=== PATIENT | male | born 1965 | race Caucasian/White ===

== ENCOUNTER 2024-01-25 10:25 | Emergency (ER) | payer OTHER ==
[~2024-01-25] VITALS: Ht 167.6 cm; Wt 73.6 kg
[2024-01-25 18:28] VITALS: BP 150/92; TEMP 98; O2SAT 96
== END 2024-01-25 18:31 | disposition home or self-care (01) ==
LOC: M ED 10:25
DX: R93.89 Abnormal findings on diagnostic imaging of other specified body structures (principal); Z91.09 Other allergy status, other than to drugs and biological substances

== ENCOUNTER → 2024-01-26 | Outpatient (CLI) | payer OTHER ==
[~2024-01-26] MED LIST: ACET-683 PO; ALBU8.5H INH; AMOX875T2 PO; BICA50TA4 PO; BISA10SU PR; CYCL-707 PO; DEXA2TA PO; DOXY-440 PO; FURO40TA2 PO; MIRA33506 PO; OXYC-517 PO; PANT40TA29 PO; PROC5TAB57 PO; SENO8.6T5 PO
[2024-01-26 15:42] LABS: BASO % 0.4 % (0.0-1.0); EOS % 0.5 % (0.0-3.0); HEMATOCRIT 36.7 % (42.0-52.0); HEMOGLOBIN 11.6 g/dl (13.5-17.5); LYMPH # 1.8 10^3/uL (1.5-5.0); LYMPH % 21.3 % (24.0-44.0); MEAN CORPUSCULAR HGB CONC 31.6 g/dl (32.0-36.5); MEAN CORPUSCULAR VOLUME 88.4 fl (80.0-96.0); MONO # 0.6 10^3/uL (0.0-0.8); MONO % 7.3 % (2.0-8.0); NEUTROPHILS # 5.9 10^3/uL (1.5-8.5); PLATELET COUNT, AUTOMATED 497 10^3/uL (150-450); RED BLOOD COUNT 4.15 10^6/uL (4.30-6.10); WHITE BLOOD COUNT 8.4 10^3/uL (4.0-10.0)
[2024-01-26 16:13] LABS: LDH LACTATE DEHYDROGENASE 322 U/L (120-246)
[2024-01-26 16:14] LABS: ALKALINE PHOSPHATASE 315 U/L (40-129); ALT/SGPT 32 U/L (7.0-40); AST/SGOT 45 U/L (<34); BILIRUBIN,TOTAL 0.2 MG/DL (0.3-1.2); BLOOD UREA NITROGEN 24 MG/DL (9-23); C REACTIVE PROTEIN QUANTITATIV 9.83 MG/DL (<1.0); CALCIUM LEVEL 8.3 MG/DL (8.5-10.1); CARBON DIOXIDE LEVEL 31 MMOL/L (20-31); CHLORIDE LEVEL 101 MMOL/L (98-107); CREATININE FOR GFR 0.67 MG/DL (0.70-1.30); GLOMERULAR FILTRATION RATE > 60.0 (>56); GLUCOSE, FASTING 100 MG/DL (60-100); PROSTATIC SPECIFIC AG MONITOR 35.71 NG/ML (< 4.00); SODIUM LEVEL 138 MMOL/L (136-145); TOTAL PROTEIN 6.7 G/DL (5.7-8.2)
[2024-01-26 16:15] LABS: CARCINOEMBRYONIC ANTIGEN < 2.0 NG/ML (<2.5); THYROID STIMULATING HORMONE 1.613 uIU/ML (0.55-4.78)
[2024-01-26 16:26] LABS: HEMOGLOBIN A1c 5.5 % (4.0-6.0)
[2024-01-26 16:31] LABS: CA19-9 TUMOR MARKER,CARBOHYDRA 7.1 U/ML (<35.0)
== END ==
LOC: M ONCR 13:38
PROVIDERS: ATTEND General Practice
DX: C78.1 Secondary malignant neoplasm of mediastinum (principal); C79.51 Secondary malignant neoplasm of bone; K68.9 Other disorders of retroperitoneum; C80.1 Malignant (primary) neoplasm, unspecified; Z91.09 Other allergy status, other than to drugs and biological substances; Z83.3 Family history of diabetes mellitus
CPT/HCPCS: 36415; 80053; 82378; 83036; 83615; 84153; 84439; 84443; 85025; 86140; 86301; 86304; G0463

== ENCOUNTER → 2024-01-26 | Outpatient (CLI) | payer OTHER ==
[~2024-01-26] MED LIST changes: +DEXA4TA PO; +PRED5PAK PO; +PRED5TA PO; +ZYTI250T PO
== END ==
LOC: M IRPOV 15:00
PROVIDERS: ATTEND Radiology Diagnostic Radiology
DX: C78.7 Secondary malignant neoplasm of liver and intrahepatic bile duct (principal); C61 Malignant neoplasm of prostate

== ENCOUNTER 2024-01-30 10:57 | Inpatient (IN) | payer OTHER ==
[~2024-01-30] VITALS: Ht 167.6 cm; Wt 76.5 kg
[2024-01-30 11:31] LABS: VENOUS BASE EXCESS 5.3 (-2.0-2.0); VENOUS HCO3 31.7 MMOL/L (23.0-27.0); VENOUS O2 SATURATION 36.3 % (60.0-80.0); VENOUS PARTIAL PRESSURE CO2 52.4 mmHg (38.0-50.0); VENOUS PARTIAL PRESSURE O2 22.3 mmHg (30.0-50.0); VENOUS PH 7.399 UNITS (7.330-7.430); VENOUS STANDARD HCO3 27.5 MMOL/L; VENOUS TOTAL CO2 33.3 MMOL/L (24.0-28.0)
[2024-01-30 11:37] LABS: BASO % 0.3 % (0.0-1.0); EOS % 0.1 % (0.0-3.0); HEMATOCRIT 46.8 % (42.0-52.0); HEMOGLOBIN 14.8 g/dl (13.5-17.5); LYMPH # 1.5 10^3/uL (1.5-5.0); LYMPH % 13.1 % (24.0-44.0); MEAN CORPUSCULAR HEMOGLOBIN 27.8 pg (27.0-33.0); MEAN CORPUSCULAR HGB CONC 31.6 g/dl (32.0-36.5); MONO # 0.7 10^3/uL (0.0-0.8); MONO % 6.1 % (2.0-8.0); NEUTROPHILS # 9.3 10^3/uL (1.5-8.5); NEUTROPHILS % 79.9 % (36.0-66.0); PLATELET COUNT, AUTOMATED 623 10^3/uL (150-450); RED BLOOD COUNT 5.32 10^6/uL (4.30-6.10); WHITE BLOOD COUNT 11.6 10^3/uL (4.0-10.0)
[2024-01-30 11:50] LABS: INR 1.12; PROTHROMBIN TIME 14.8 SECONDS (12.5-14.5)
[2024-01-30 12:07] LABS: CK-MB VALUE MASS 1.5 NG/ML (<3.6)
[2024-01-30 12:09] LABS: ALBUMIN 2.7 G/DL (3.2-5.2); ALKALINE PHOSPHATASE 479 U/L (40-129); ALT/SGPT 18 U/L (7.0-40); AST/SGOT 83 U/L (<34); BILIRUBIN,DIRECT 0.1 MG/DL (<0.4); BILIRUBIN,TOTAL 0.5 MG/DL (0.3-1.2); BLOOD UREA NITROGEN 19 MG/DL (9-23); CALCIUM LEVEL 9.3 MG/DL (8.5-10.1); CARBON DIOXIDE LEVEL 30 MMOL/L (20-31); CHLORIDE LEVEL 99 MMOL/L (98-107); CPK CREATINE PHOSPHOKINASE 511 U/L (46-171); CREATININE FOR GFR 0.75 MG/DL (0.70-1.30); GLOMERULAR FILTRATION RATE > 60.0 (>56); GLUCOSE, FASTING 99 MG/DL (60-100); MB/CK RELATIVE INDEX 0.29 (< OR =4); SODIUM LEVEL 139 MMOL/L (136-145)
[2024-01-30 12:18] LABS: ABG BASE EXCESS 3.7 (-2.0-2.0); ABG O2 SATURATION 97.9 % (95.0-99.0); ABG PARTIAL PRESSURE CO2 36.6 mmHg (35.0-45.0); ABG PARTIAL PRESSURE O2 101.9 mmHg (75.0-100.0); ABG STANDARD HCO3 27.8 MMOL/L. (22.0-26.0); ABG TOTAL CO2 28.1 MMOL/L (22.0-29.0); ABG pH (ARTERIAL) 7.486 UNITS (7.350-7.450)
[2024-01-30] MEDS ORDERED: ISOVUE-370 76% 100ML VIAL As Ordered ONE (12:22)
[2024-01-30] MEDS: IPRATROPIUM 0.5MG/ALBUTEROL 2.5MG INH SOL UD 3ML (DUONEB) NEB ONE (12:22)
[2024-01-30] MEDS: ALBUTEROL SULFATE 2.5MG/0.5ML INH NEB SOLN INH ONE (12:23)
[2024-01-30 13:12] LABS: CK-MB VALUE MASS < 1.0 NG/ML (<3.6); CPK CREATINE PHOSPHOKINASE 433 U/L (46-171); MB/CK RELATIVE INDEX 0.23 (< OR =4)
[2024-01-30] MEDS ORDERED: PERCOCET 5MG/325MG TAB PO PRN ×2 (13:50)
[2024-01-30] MEDS ORDERED: BISACODYL 10MG SUPP PR PRN (13:50)
[2024-01-30] MEDS ORDERED: ACETAMINOPHEN 325 MG TAB PO PRN (13:50)
[2024-01-30] MEDS: LEVALBUTEROL 1.25MG 0.5ML CONCENTRATE NEB NEB SCH (14:00)
[2024-01-30] MEDS: D5W/0.9% SODIUM CHLORIDE 1,000 ML IV SCH (14:12)
[2024-01-30 14:43] VITALS: BP 163/100; TEMP 98.5; O2SAT 96
[2024-01-30] MEDS ORDERED: LIDOCAINE 1% MDV 20ML VIAL As Ordered ONE (14:51)
[2024-01-30 14:56] LABS: LDH LACTATE DEHYDROGENASE 603 U/L (120-246)
[2024-01-30] MEDS: KETOROLAC 30 MG/ML 1ML VIAL IV SCH (15:56)
[2024-01-30] MEDS: PANTOPRAZOLE 40MG TAB (PROTONIX) PO SCH (16:07)
[2024-01-30] MEDS: MOM 30ML SUSPENSION UDC PO SCH (16:07)
[2024-01-30] MEDS ORDERED: HOME MED LIST COMPLETE! XX SCH (16:40)
[2024-01-30] MEDS ORDERED: CYCL-707 PO (16:40)
[2024-01-30 16:49] LABS: SOURCE, BODY FLUID ALBUMIN PLEURAL
[2024-01-30 16:54] LABS: SOURCE, BODY FLUID GLUCOSE PLEURAL; SOURCE, BODY FLUID TOT PROTEIN PLEURAL; SOURCE, BODY FLUID TRIG PLEURAL; TOTAL PROTEIN, BODY FLUID 2.2 G/DL (NOT ESTABLISHED); TRIGLYCERIDE, BODY FLUID 24 MG/DL (NOT ESTABLISHED)
[2024-01-30 16:55] LABS: LDH, BODY FLUID 145 U/L (NOT ESTABLISHED); SOURCE, BODY FLUID LDH PLEURAL
[2024-01-30 16:56] LABS: AMYLASE, BODY FLUID < 20 U/L (NOT ESTABLISHED); CHOLESTEROL, BODY FLUID 37 MG/DL (NOT ESTABLISHED); SOURCE, BODY FLUID AMYLASE PLEURAL; SOURCE, BODY FLUID CHOL PLEURAL
[2024-01-30 17:02] LABS: PH BODY FLUID 7.715 UNITS (NOT ESTABLISHED); SOURCE, BODY FLUID pH PLEURAL
[2024-01-30 17:18] LABS: APPEARANCE, BODY FLUID CLEAR (CLEAR); PLEURAL FL COLOR PALE YELLOW (COLORLESS); SOURCE, BODY FLUID PLEURAL
[2024-01-30] MEDS ORDERED: LR 1,000 ML IV SCH (17:35)
[2024-01-30] MEDS ORDERED: oxyCODONE 5MG TAB PO PRN (18:25)
[2024-01-30 20:48] VITALS: BP 131/86; TEMP 97.4; O2SAT 94
[2024-01-30] MEDS: HEPARIN SOD (PORCINE) 5000UNITS/ML 1ML VIAL/SYRINGE SC SCH (20:51)
[2024-01-30] MEDS: DOCUSATE SODIUM 100MG CAPSULE PO SCH (20:52)
[2024-01-30] MEDS: ACETAMINOPHEN 325 MG TAB PO SCH (20:52)
[2024-01-30 23:30] VITALS: BP 129/88; TEMP 98.1; O2SAT 95
[2024-01-31 04:00] VITALS: BP 138/90; TEMP 97.9; O2SAT 96
[2024-01-31 05:33] LABS: ABG BASE EXCESS 4.5 (-2.0-2.0); ABG HCO3 28.8 MMOL/L (22.0-26.0); ABG O2 SATURATION 98.9 % (95.0-99.0); ABG PARTIAL PRESSURE CO2 41.8 mmHg (35.0-45.0); ABG PARTIAL PRESSURE O2 133.8 mmHg (75.0-100.0); ABG STANDARD HCO3 28.5 MMOL/L. (22.0-26.0); ABG TOTAL CO2 30.1 MMOL/L (22.0-29.0); ABG pH (ARTERIAL) 7.456 UNITS (7.350-7.450)
[2024-01-31 06:52] LABS: BASO % 0.2 % (0.0-1.0); EOS % 0.1 % (0.0-3.0); HEMATOCRIT 36.8 % (42.0-52.0); LYMPH # 1.3 10^3/uL (1.5-5.0); LYMPH % 11.2 % (24.0-44.0); MEAN CORPUSCULAR HEMOGLOBIN 27.5 pg (27.0-33.0); MEAN CORPUSCULAR VOLUME 88.9 fl (80.0-96.0); MONO # 0.8 10^3/uL (0.0-0.8); MONO % 6.7 % (2.0-8.0); NEUTROPHILS # 9.7 10^3/uL (1.5-8.5); NEUTROPHILS % 81.2 % (36.0-66.0); RED BLOOD COUNT 4.14 10^6/uL (4.30-6.10); WHITE BLOOD COUNT 11.9 10^3/uL (4.0-10.0)
[2024-01-31 06:59] LABS: HEMOGLOBIN 11.4 g/dl (13.5-17.5); PLATELET COUNT, AUTOMATED 447 10^3/uL (150-450)
[2024-01-31] MEDS ORDERED: MOM 30ML SUSPENSION UDC PO PRN (07:25)
[2024-01-31 07:30] VITALS: BP 149/96; TEMP 98; O2SAT 96
[2024-01-31 07:31] LABS: BLOOD UREA NITROGEN 24 MG/DL (9-23); CALCIUM LEVEL 8.2 MG/DL (8.5-10.1); CARBON DIOXIDE LEVEL 30 MMOL/L (20-31); CHLORIDE LEVEL 101 MMOL/L (98-107); CREATININE FOR GFR 0.79 MG/DL (0.70-1.30); GLOMERULAR FILTRATION RATE > 60.0 (>56); GLUCOSE, FASTING 103 MG/DL (60-100); POTASSIUM SERUM 4.4 MMOL/L (3.5-5.1); SODIUM LEVEL 139 MMOL/L (136-145)
[2024-01-31] MEDS: KETOROLAC 30 MG/ML 1ML VIAL IV PRN (08:43)
[2024-01-31] MEDS: oxyCODONE 5MG TAB PO PRN ×2 (10:10→17:27)
[2024-01-31 12:00] VITALS: BP 140/87; TEMP 96.9; O2SAT 95
[2024-01-31] MEDS: FUROSEMIDE 20 MG TAB PO SCH (13:40)
[2024-01-31 16:00] VITALS: BP 159/97; TEMP 98; O2SAT 95
[2024-01-31] MEDS: LEVALBUTEROL 1.25MG 0.5ML CONCENTRATE NEB NEB PRN (17:37)
[2024-01-31 20:27] VITALS: BP 129/86; TEMP 97.9; O2SAT 94
[2024-02-01] VITALS (25 sets, daily range): BP systolic 139–174; BP diastolic 80–100; TEMP 97.4–102.7; O2SAT 88–97
[2024-02-01] MEDS ORDERED: PILL CUTTER 1 EACH XX ONE (00:01)
[2024-02-01] MEDS: LEVALBUTEROL 1.25MG 0.5ML CONCENTRATE NEB NEB ONE (03:49)
[2024-02-01 05:52] LABS: BASO % 0.2 % (0.0-1.0); EOS # 0.1 10^3/uL (0.0-0.5); EOS % 0.5 % (0.0-3.0); HEMATOCRIT 36.1 % (42.0-52.0); HEMOGLOBIN 11.1 g/dl (13.5-17.5); LYMPH # 1.3 10^3/uL (1.5-5.0); LYMPH % 9.8 % (24.0-44.0); MEAN CORPUSCULAR HEMOGLOBIN 27.8 pg (27.0-33.0); MEAN CORPUSCULAR HGB CONC 30.7 g/dl (32.0-36.5); MEAN CORPUSCULAR VOLUME 90.3 fl (80.0-96.0); MONO # 0.8 10^3/uL (0.0-0.8); MONO % 6.4 % (2.0-8.0); NEUTROPHILS # 10.8 10^3/uL (1.5-8.5); NEUTROPHILS % 82.6 % (36.0-66.0); PLATELET COUNT, AUTOMATED 414 10^3/uL (150-450); WHITE BLOOD COUNT 13.1 10^3/uL (4.0-10.0)
[2024-02-01 06:10] LABS: BLOOD UREA NITROGEN 28 MG/DL (9-23); CARBON DIOXIDE LEVEL 28 MMOL/L (20-31); CHLORIDE LEVEL 102 MMOL/L (98-107); CREATININE FOR GFR 0.77 MG/DL (0.70-1.30); GLOMERULAR FILTRATION RATE > 60.0 (>56); GLUCOSE, FASTING 145 MG/DL (60-100); POTASSIUM SERUM 4.1 MMOL/L (3.5-5.1); SODIUM LEVEL 139 MMOL/L (136-145)
[2024-02-01] MEDS: ONDANSETRON 4MG 2ML VIAL IV PRN (06:20)
[2024-02-01] MEDS: oxyCODONE 5MG TAB PO PRN (15:40)
[2024-02-01] MEDS: CYCLOBENZAPRINE 10MG TABLET PO PRN (17:59)
[2024-02-01] MEDS: oxyCODONE 5MG TAB PO ONE (19:38)
[2024-02-01] MEDS ORDERED: VANCOMYCIN/WATER FOR INJ 1,000 MG in IV 1 EA IV SCH (20:00)
[2024-02-01] MEDS ORDERED: PIPERACILLIN/TAZOBACTAM SOD 3.375 GM in DEXTROSE 5% (D5W) ADV/MINI-BAG 50 ML IV SCH (20:00)
[2024-02-01] MEDS: LR 1,000 ML IV SCH (20:15)
[2024-02-01] MEDS: VANCOMYCIN HCL 1,500 MG, VIAL MATE ADAPTER 1 EACH in NS 500 ML IV ONE (20:37)
[2024-02-01] MEDS: DICLOFENAC EPOLAMINE 1.3% PATCH TOP SCH (20:37)
[2024-02-01 22:54] LABS: HEMATOCRIT 31.5 % (42.0-52.0); HEMOGLOBIN 9.6 g/dl (13.5-17.5); MEAN CORPUSCULAR HEMOGLOBIN 27.7 pg (27.0-33.0); MEAN CORPUSCULAR HGB CONC 30.5 g/dl (32.0-36.5); PLATELET COUNT, AUTOMATED 370 10^3/uL (150-450); RED BLOOD COUNT 3.46 10^6/uL (4.30-6.10); WHITE BLOOD COUNT 13.6 10^3/uL (4.0-10.0)
[2024-02-01] MEDS: PIPERACILLIN/TAZOBACTAM SOD 4.5 GM in DEXTROSE 5% (D5W) ADV/MINI-BAG 50 ML IV SCH (23:05)
[2024-02-01 23:17] LABS: BLOOD UREA NITROGEN 24 MG/DL (9-23); CALCIUM LEVEL 7.1 MG/DL (8.5-10.1); CARBON DIOXIDE LEVEL 27 MMOL/L (20-31); CHLORIDE LEVEL 103 MMOL/L (98-107); CREATININE FOR GFR 0.76 MG/DL (0.70-1.30); GLOMERULAR FILTRATION RATE > 60.0 (>56); GLUCOSE, FASTING 98 MG/DL (60-100); POTASSIUM SERUM 4.6 MMOL/L (3.5-5.1); SODIUM LEVEL 137 MMOL/L (136-145)
[2024-02-02] VITALS (24 sets, daily range): BP systolic 131–139; BP diastolic 78–95; TEMP 95.7–101.9; O2SAT 88–97
[2024-02-02] MEDS: VANCOMYCIN 1,250 MG/250 ML IV BAG IV SCH (03:21)
[2024-02-02 03:30] LABS: BASO % 0.2 % (0.0-1.0); EOS % 0.3 % (0.0-3.0); HEMATOCRIT 34.5 % (42.0-52.0); HEMOGLOBIN 10.8 g/dl (13.5-17.5); LYMPH # 1.5 10^3/uL (1.5-5.0); LYMPH % 9.1 % (24.0-44.0); MEAN CORPUSCULAR HGB CONC 31.3 g/dl (32.0-36.5); MEAN CORPUSCULAR VOLUME 89.4 fl (80.0-96.0); MONO % 6.5 % (2.0-8.0); NEUTROPHILS # 13.3 10^3/uL (1.5-8.5); NEUTROPHILS % 83.5 % (36.0-66.0); PLATELET COUNT, AUTOMATED 403 10^3/uL (150-450); RED BLOOD COUNT 3.86 10^6/uL (4.30-6.10); WHITE BLOOD COUNT 15.9 10^3/uL (4.0-10.0)
[2024-02-02 03:44] LABS: BLOOD UREA NITROGEN 26 MG/DL (9-23); CALCIUM LEVEL 7.9 MG/DL (8.5-10.1); CARBON DIOXIDE LEVEL 27 MMOL/L (20-31); CHLORIDE LEVEL 102 MMOL/L (98-107); CREATININE FOR GFR 0.83 MG/DL (0.70-1.30); GLOMERULAR FILTRATION RATE > 60.0 (>56); GLUCOSE, FASTING 103 MG/DL (60-100); POTASSIUM SERUM 4.4 MMOL/L (3.5-5.1); SODIUM LEVEL 136 MMOL/L (136-145)
[2024-02-02 08:11] LABS: PROCALCITONIN 0.71 ng/ml
[2024-02-02] MEDS: SENNA 8.6 MG TAB (SENOKOT) PO PRN (08:37)
[2024-02-02] MEDS: MIRALAX *UNIT DOSE* 17GM PACKET PO PRN (08:37)
[2024-02-02] MEDS: FUROSEMIDE 40MG/4ML VIAL IV ONE (10:04)
[2024-02-02] MEDS: VANCOMYCIN 1,000MG/200 ML IV BAG IV SCH (16:15)
[2024-02-02] MEDS ORDERED: BICA50TA4 PO (17:00)
[2024-02-02] MEDS ORDERED: PROHANCE 279.3MG/ML 15ML VIAL As Ordered ONE (18:22)
[2024-02-02] MEDS: HYDROMORPHONE HCL 0.5 MG/ 0.5 ML SYRINGE IV ONE (19:43)
[2024-02-03] VITALS (23 sets, daily range): BP systolic 125–139; BP diastolic 79–88; TEMP 98.4–98.5; O2SAT 86–100
[2024-02-03] MEDS: ACETAMINOPHEN 325 MG TAB PO PRN (03:12)
[2024-02-03 05:26] LABS: BASO # 0.1 10^3/uL (0.0-0.2); BASO % 0.3 % (0.0-1.0); EOS # 0.1 10^3/uL (0.0-0.5); EOS % 0.5 % (0.0-3.0); HEMATOCRIT 32.3 % (42.0-52.0); LYMPH # 1.8 10^3/uL (1.5-5.0); LYMPH % 12.5 % (24.0-44.0); MEAN CORPUSCULAR HEMOGLOBIN 27.2 pg (27.0-33.0); MEAN CORPUSCULAR VOLUME 87.8 fl (80.0-96.0); MONO # 1.1 10^3/uL (0.0-0.8); MONO % 7.8 % (2.0-8.0); NEUTROPHILS # 11.4 10^3/uL (1.5-8.5); NEUTROPHILS % 78.5 % (36.0-66.0); PLATELET COUNT, AUTOMATED 374 10^3/uL (150-450); RED BLOOD COUNT 3.68 10^6/uL (4.30-6.10); WHITE BLOOD COUNT 14.5 10^3/uL (4.0-10.0)
[2024-02-03 06:04] LABS: BLOOD UREA NITROGEN 27 MG/DL (9-23); CALCIUM LEVEL 7.6 MG/DL (8.5-10.1); CARBON DIOXIDE LEVEL 27 MMOL/L (20-31); CHLORIDE LEVEL 103 MMOL/L (98-107); GLOMERULAR FILTRATION RATE > 60.0 (>56); GLUCOSE, FASTING 101 MG/DL (60-100); POTASSIUM SERUM 3.5 MMOL/L (3.5-5.1); SODIUM LEVEL 141 MMOL/L (136-145)
[2024-02-03] MEDS ORDERED: oxyCODONE 5MG TAB PO PRN (09:45)
[2024-02-03] MEDS: dexAMETHasone 2 MG TAB PO SCH (12:00)
[2024-02-03] MEDS ORDERED: OXYC-517 PO (16:27)
[2024-02-03] MEDS ORDERED: DEXA2TA PO (16:27)
[2024-02-03] MEDS ORDERED: MIRA33506 PO (16:27)
[2024-02-03] MEDS ORDERED: ACET-683 PO (16:27)
[2024-02-03] MEDS ORDERED: PANT40TA29 PO (16:27)
[2024-02-03] MEDS ORDERED: AMOX875T2 PO (16:27)
[2024-02-03] MEDS ORDERED: ALBU8.5H INH (16:27)
[2024-02-03] MEDS ORDERED: BISA10SU PR (16:27)
[2024-02-03] MEDS ORDERED: DOXY-440 PO (16:27)
[2024-02-03] MEDS ORDERED: SENO8.6T5 PO (16:27)
[2024-02-05] MEDS ORDERED: PROC5TAB57 PO (14:19)
== END 2024-02-03 17:42 | disposition home health service (06) | DRG 500 ==
LOC: M ED 10:57 → M ED INP 13:47 → EEVIPCON 13:47 → M PCU 14:34
PROVIDERS: ADMIT Student in an Organized Health Care Education/Training Program; ATTEND Student in an Organized Health Care Education/Training Program
PROC: 0W9B30Z Drainage of Left Pleural Cavity with Drainage Device, Percutaneous Approach (ICD-10-PCS; principal; 2024-01-30)
PROC: B246ZZZ Ultrasonography of Right and Left Heart (ICD-10-PCS; 2024-02-01)
DX: C61 Malignant neoplasm of prostate (principal); A41.9 Sepsis, unspecified organism; J91.0 Malignant pleural effusion; C78.01 Secondary malignant neoplasm of right lung; C78.7 Secondary malignant neoplasm of liver and intrahepatic bile duct; C78.02 Secondary malignant neoplasm of left lung; E83.52 Hypercalcemia; C79.51 Secondary malignant neoplasm of bone; E87.20 Acidosis, unspecified; R06.02 Shortness of breath; I10 Essential (primary) hypertension; J98.11 Atelectasis; M25.552 Pain in left hip; M54.50 Low back pain, unspecified; R63.4 Abnormal weight loss; R09.02 Hypoxemia

== ENCOUNTER → 2024-01-30 | Outpatient (CLI) | payer OTHER ==
[~2024-01-30] MED LIST changes: -DEXA4TA PO; -FURO40TA2 PO; -PRED5PAK PO; -PRED5TA PO; -PROC5TAB57 PO; -ZYTI250T PO
== END ==
LOC: M RAD 10:15
PROVIDERS: ATTEND General Practice
DX: C79.51 Secondary malignant neoplasm of bone (principal); C78.7 Secondary malignant neoplasm of liver and intrahepatic bile duct

== ENCOUNTER → 2024-02-06 | Outpatient (RCR) | payer OTHER ==
[~2024-02-06] MED LIST changes: +FURO40TA2 PO; +PROC5TAB57 PO
== END ==
LOC: M ONCR 02-02 15:13
PROVIDERS: ATTEND General Practice
DX: Z51.0 Encounter for antineoplastic radiation therapy (principal); C61 Malignant neoplasm of prostate

== ENCOUNTER → 2024-02-08 | Outpatient (REF) | payer OTHER ==
[2024-02-08 11:43] LABS: HEMATOCRIT 38.4 % (42.0-52.0); MEAN CORPUSCULAR HEMOGLOBIN 27.5 pg (27.0-33.0); MEAN CORPUSCULAR HGB CONC 31.3 g/dl (32.0-36.5); MEAN CORPUSCULAR VOLUME 88.1 fl (80.0-96.0); PLATELET COUNT, AUTOMATED 566 10^3/uL (150-450); RED BLOOD COUNT 4.36 10^6/uL (4.30-6.10)
[2024-02-08 12:13] LABS: BLOOD UREA NITROGEN 18 MG/DL (9-23); CARBON DIOXIDE LEVEL 36 MMOL/L (20-31); CHLORIDE LEVEL 99 MMOL/L (98-107); CREATININE FOR GFR 0.73 MG/DL (0.70-1.30); GLOMERULAR FILTRATION RATE > 60.0 (>56); GLUCOSE, FASTING 106 MG/DL (60-100); POTASSIUM SERUM 4.5 MMOL/L (3.5-5.1); SODIUM LEVEL 142 MMOL/L (136-145)
== END ==
LOC: M LAB REF 11:20
PROVIDERS: ATTEND Student in an Organized Health Care Education/Training Program
DX: Z00.00 Encounter for general adult medical examination without abnormal findings (principal)

== ENCOUNTER → 2024-02-08 | Outpatient (CLI) | payer OTHER ==
[~2024-02-08] MED LIST changes: -FURO40TA2 PO
== END ==
LOC: M LAB 11:40
PROVIDERS: ATTEND General Practice
DX: C79.51 Secondary malignant neoplasm of bone (principal); C78.7 Secondary malignant neoplasm of liver and intrahepatic bile duct

== ENCOUNTER 2024-02-12 10:12 | Outpatient (RCR) | payer BC, OTHER ==
[~2024-02-12 10:12] MED LIST changes: -FURO40TA2 PO
[2024-02-12] MEDS ORDERED: FURO40TA2 PO (11:10)
[2024-03-05] MEDS ORDERED: PRED5TA PO (12:23)
[2024-03-05] MEDS ORDERED: DEXA4TA PO (12:23)
[2024-03-05] MEDS ORDERED: ZYTI250T PO (12:24)
[2024-03-05] MEDS ORDERED: PRED5PAK PO (13:15)
== END 2024-03-08 ==
LOC: M ONCR 10:12
PROVIDERS: ATTEND General Practice
DX: Z51.0 Encounter for antineoplastic radiation therapy (principal); C61 Malignant neoplasm of prostate

== ENCOUNTER → 2024-02-12 | Outpatient (CLI) | payer OTHER ==
[~2024-02-12] MED LIST changes: +FURO40TA2 PO
[2024-02-12] MEDS: LEUPROLIDE 30 MG IM ONE (10:40)
== END ==
LOC: M ONCR 11:08
PROVIDERS: ATTEND General Practice
DX: C61 Malignant neoplasm of prostate (principal)
CPT/HCPCS: 96402; J9217

== ENCOUNTER → 2024-02-29 | Outpatient (CLI) | payer OTHER ==
[~2024-02-29] MED LIST changes: +FURO40TA2 PO
[2024-02-29 12:32] VITALS: TEMP 98.4
[2024-02-29 15:12] VITALS: BP 135/78; O2SAT 91
== END ==
LOC: M IRPRO 11:29
PROVIDERS: ATTEND General Practice
DX: J90 Pleural effusion, not elsewhere classified (principal); C61 Malignant neoplasm of prostate

== ENCOUNTER → 2024-02-29 | Outpatient (CLI) | payer BC, OTHER ==
[~2024-02-29] MED LIST changes: +DEXA4TA PO; +LISI10TA22; +ONDA-284 PO; +PRED5PAK PO; +PRED5TA PO; +ZYTI250T PO
[2024-02-29 09:15] LABS: BASO # 0.1 10^3/uL (0.0-0.2); EOS # 0.1 10^3/uL (0.0-0.5); HEMATOCRIT 41.9 % (42.0-52.0); LYMPH # 0.5 10^3/uL (1.5-5.0); LYMPH % 10.7 % (24.0-44.0); MEAN CORPUSCULAR HEMOGLOBIN 28.4 pg (27.0-33.0); MEAN CORPUSCULAR VOLUME 91.5 fl (80.0-96.0); MONO # 0.4 10^3/uL (0.0-0.8); MONO % 8.6 % (2.0-8.0); NEUTROPHILS # 3.8 10^3/uL (1.5-8.5); NEUTROPHILS % 78.5 % (36.0-66.0); PLATELET COUNT, AUTOMATED 294 10^3/uL (150-450); RED BLOOD COUNT 4.58 10^6/uL (4.30-6.10); WHITE BLOOD COUNT 4.9 10^3/uL (4.0-10.0)
[2024-02-29 09:34] LABS: ALBUMIN 2.6 G/DL (3.2-5.2); ALKALINE PHOSPHATASE 309 U/L (40-129); ALT/SGPT 15 U/L (7.0-40); AST/SGOT 25 U/L (<34); BILIRUBIN,TOTAL 0.3 MG/DL (0.3-1.2); BLOOD UREA NITROGEN 21 MG/DL (9-23); CALCIUM LEVEL 8.5 MG/DL (8.5-10.1); CARBON DIOXIDE LEVEL 33 MMOL/L (20-31); CHLORIDE LEVEL 107 MMOL/L (98-107); CREATININE FOR GFR 0.74 MG/DL (0.70-1.30); GLOMERULAR FILTRATION RATE > 60.0 (>56); GLUCOSE, FASTING 90 MG/DL (60-100); POTASSIUM SERUM 4.6 MMOL/L (3.5-5.1); PROSTATIC SPECIFIC AG MONITOR 32.57 NG/ML (< 4.00); SODIUM LEVEL 144 MMOL/L (136-145); TOTAL PROTEIN 6.4 G/DL (5.7-8.2)
[2024-02-29 09:38] LABS: TESTOSTERONE 47 NG/DL (241-827)
[2024-02-29] MEDS: FUROSEMIDE 40MG/4ML VIAL IV ONE (10:02)
== END ==
LOC: M ONCR 08:12
PROVIDERS: ATTEND General Practice
DX: C61 Malignant neoplasm of prostate (principal); R60.1 Generalized edema; J90 Pleural effusion, not elsewhere classified
CPT/HCPCS: 71045; 80053; 83880; 84153; 84403; 85025; G0463; J1940

== ENCOUNTER → 2024-03-12 | Outpatient (CLI) | payer BC ==
[~2024-03-12] MED LIST changes: +LIDOCAINE 1% MDV 20ML VIAL As Ordered ONE; -LISI10TA22; +MIDAZOLAM INJ 2MG/2ML VIAL As Ordered ONE; +NS (Normal Saline) 0.9% 1,000 ML IV SCH; -ONDA-284 PO; +ceFAZolin 2 GM/D5W 50 ML IV BAG As Ordered ONE; +fentaNYL 100 MCG/2 ML INJECTION As Ordered ONE
[2024-03-12 10:15] VITALS: TEMP 95.9
[2024-03-12] MEDS: ceFAZolin SOD 2 GM in IV 1 EA IV ONE (11:11)
[2024-03-12 13:25] VITALS: BP 160/109; O2SAT 92
== END ==
LOC: M IRPRO 10:00
PROVIDERS: ATTEND Specialist
DX: C61 Malignant neoplasm of prostate (principal)
CPT/HCPCS: 36561; 99152; 99153; C1894; J0690; J1642; J2250; J3010

== ENCOUNTER → 2024-03-14 | Outpatient (CLI) | payer BC ==
[~2024-03-14] MED LIST changes: -LIDOCAINE 1% MDV 20ML VIAL As Ordered ONE; -MIDAZOLAM INJ 2MG/2ML VIAL As Ordered ONE; -NS (Normal Saline) 0.9% 1,000 ML IV SCH; -ceFAZolin 2 GM/D5W 50 ML IV BAG As Ordered ONE; -fentaNYL 100 MCG/2 ML INJECTION As Ordered ONE
== END ==
LOC: M RAD 06:26
PROVIDERS: ATTEND Specialist
DX: C61 Malignant neoplasm of prostate (principal)
CPT/HCPCS: 78306; A9503

== ENCOUNTER → 2024-03-18 | Outpatient (CLI) | payer BC ==
[2024-03-18 11:05] LABS: BASO % 0.4 % (0.0-1.0); EOS % 0.1 % (0.0-3.0); HEMATOCRIT 42.9 % (42.0-52.0); HEMOGLOBIN 13.3 g/dl (13.5-17.5); LYMPH # 0.5 10^3/uL (1.5-5.0); MEAN CORPUSCULAR VOLUME 93.7 fl (80.0-96.0); MONO # 0.5 10^3/uL (0.0-0.8); MONO % 6.9 % (2.0-8.0); NEUTROPHILS # 6.7 10^3/uL (1.5-8.5); NEUTROPHILS % 86.2 % (36.0-66.0); PLATELET COUNT, AUTOMATED 290 10^3/uL (150-450); RED BLOOD COUNT 4.58 10^6/uL (4.30-6.10); WHITE BLOOD COUNT 7.7 10^3/uL (4.0-10.0)
[2024-03-18 11:49] LABS: HEMOGLOBIN A1c 5.2 % (4.0-6.0)
[2024-03-18 12:10] LABS: ALBUMIN 2.9 G/DL (3.2-5.2); ALKALINE PHOSPHATASE 353 U/L (40-129); ALT/SGPT 16 U/L (7.0-40); AST/SGOT 21 U/L (<34); BILIRUBIN,TOTAL 0.5 MG/DL (0.3-1.2); BLOOD UREA NITROGEN 23 MG/DL (9-23); CALCIUM LEVEL 8.4 MG/DL (8.5-10.1); CARBON DIOXIDE LEVEL 29 MMOL/L (20-31); CHLORIDE LEVEL 103 MMOL/L (98-107); CHOLESTEROL LEVEL 187 MG/DL (<200); CHOLESTEROL RISK RATIO 3.44 (<5); CREATININE FOR GFR 0.65 MG/DL (0.70-1.30); GLOMERULAR FILTRATION RATE > 60.0 (>56); GLUCOSE, FASTING 137 MG/DL (60-100); HDL CHOLESTEROL 54.3 MG/DL (>40); LDL CHOLESTEROL 103.1 MG/DL (<100); NON-HDL-C 132.7 MG/DL; POTASSIUM SERUM 4.6 MMOL/L (3.5-5.1); SODIUM LEVEL 140 MMOL/L (136-145); TOTAL PROTEIN 6.7 G/DL (5.7-8.2); TRIGLYCERIDES LEVEL 148 MG/DL (<150)
== END ==
LOC: M LAB 10:14
PROVIDERS: ATTEND Physician Assistant
DX: I11.9 Hypertensive heart disease without heart failure (principal); Z13.220 Encounter for screening for lipoid disorders

== ENCOUNTER → 2024-11-07 | Outpatient (CLI) | payer BC ==
[~2024-11-07] MED LIST changes: +LISI10TA22; +ONDA-284 PO; +SENN-225 PO; -SENO8.6T5 PO
[2024-11-07 17:06] LABS: BASO # 0.0 10^3/uL (0.0-0.2); BASO % 0.4 % (0.0-1.0); EOS # 0.0 10^3/uL (0.0-0.5); EOS % 0.7 % (0.0-3.0); LYMPH # 1.2 10^3/uL (1.5-5.0); LYMPH % 21.5 % (24.0-44.0); MONO # 0.5 10^3/uL (0.0-0.8); MONO % 9.3 % (2.0-8.0); NEUTROPHILS # 3.7 10^3/uL (1.5-8.5); NEUTROPHILS % 66.5 % (36.0-66.0); PLATELET COUNT, AUTOMATED 233 10^3/uL (150-450)
[2024-11-07 17:28] LABS: ALT/SGPT 18 U/L (7.0-40); AST/SGOT 19 U/L (<34); CALCIUM LEVEL 7.9 MG/DL (8.5-10.1); CARBON DIOXIDE LEVEL 28 MMOL/L (20-31); CHLORIDE LEVEL 104 MMOL/L (98-107); CREATININE FOR GFR 0.83 MG/DL (0.70-1.30); GLOMERULAR FILTRATION RATE > 90.0 (>56); POTASSIUM SERUM 4.0 MMOL/L (3.5-5.1); SODIUM LEVEL 140 MMOL/L (136-145)
== END ==
LOC: M LAB 16:37
PROVIDERS: ATTEND Specialist
DX: C61 Malignant neoplasm of prostate (principal)

== ENCOUNTER → 2024-12-28 | Outpatient (CLI) | payer BC ==
[~2024-12-28] MED LIST changes: -PROC5TAB57 PO; +PROC5TAB81 PO
[2024-12-28 09:17] LABS: BASO # 0.0 10^3/uL (0.0-0.2); BASO % 0.4 % (0.0-1.0); EOS # 0.0 10^3/uL (0.0-0.5); EOS % 0.8 % (0.0-3.0); LYMPH # 0.8 10^3/uL (1.5-5.0); LYMPH % 15.1 % (24.0-44.0); MONO # 0.3 10^3/uL (0.0-0.8); MONO % 4.7 % (2.0-8.0); NEUTROPHILS # 4.1 10^3/uL (1.5-8.5); NEUTROPHILS % 78.1 % (36.0-66.0); PLATELET COUNT, AUTOMATED 306 10^3/uL (150-450)
[2024-12-28 09:37] LABS: ALT/SGPT 14 U/L (7.0-40); AST/SGOT 17 U/L (<34); CALCIUM LEVEL 9.1 MG/DL (8.5-10.1); CARBON DIOXIDE LEVEL 29 MMOL/L (20-31); CHLORIDE LEVEL 110 MMOL/L (98-107); CREATININE FOR GFR 0.68 MG/DL (0.70-1.30); GLOMERULAR FILTRATION RATE > 90.0 (>56); POTASSIUM SERUM 4.2 MMOL/L (3.5-5.1); SODIUM LEVEL 146 MMOL/L (136-145)
== END ==
LOC: M LAB 08:12
PROVIDERS: ATTEND Specialist
DX: C61 Malignant neoplasm of prostate (principal)